=== PATIENT | female | born 2000 ===

== ENCOUNTER → 2020-05-19 | Outpatient (CLI) | payer SELFPAY | LOC: M LABSMTC 09:46 | PROVIDERS: ATTEND Pediatrics | DX: Z20.828 Contact with and (suspected) exposure to other viral communicable diseases (principal) ==

== ENCOUNTER → 2025-02-21 | Outpatient (RCR) | LOC: M EMPSSV 01-24 06:33 → EDUNIT# 01-24 06:33 | PROVIDERS: ATTEND Family Medicine | DX: Z20.828 Contact with and (suspected) exposure to other viral communicable diseases (principal) ==